=== PATIENT | female | born 1950 | race Caucasian/White ===

== ENCOUNTER 2022-08-13 12:22 | Emergency (ER) | payer MEDICARE, BC, SELFPAY ==
[2022-08-13 12:23] VITALS: BP 152/91; PULSE 82; RESP 22; TEMP 36.8; O2SAT 96; BMI 26.5
--- NOTE | 2022-08-13 12:27 | ECG_ITS ---
[facility] Test Date: 2022-08-13 Pat Name: Anat Chavez Department: Room: Gender: Female Solution Specialist: : 1950 Requested By: Tomi Gomez Order Number: [id number] Maty MD: Neil Rosado M.D. Measurements Intervals [place] Rate: 81 P: 36 DE: 207 QRS: -15 QRSD: 74 T: 37 QT: 360 QTc: 420 Interpretive Statements SINUS RHYTHM No previous ECG available for comparison Electronically Signed On 08-14-2022 14:09:11 RN DOCUMENTATION SPECIALIST by Neil Rosado M.D. [id number]
[2022-08-13 12:48] VITALS: BP 152/90; PULSE 74; RESP 14; O2SAT 98
--- NOTE | 2022-08-13 12:57 | ECG_ITS ---
[facility] Test Date: 2022-08-13 Pat Name: Anat Chavez Department: Room: Gender: Female Medical Records Coordinator: : 1950 Requested By: Tomi Gomez Order Number: [id number] Maty MD: Neil Rosado M.D. Measurements Intervals [place] Rate: 70 P: 72 HI: 209 QRS: -6 QRSD: 84 T: 45 QT: 401 QTc: 433 Interpretive Statements SINUS RHYTHM Compared to ECG 08/13/2022 12:30:40 No significant changes Electronically Signed On 08-14-2022 14:09:15 ITALIAN TEACHER by Neil Rosado M.D. [id number]
[2022-08-13 13:03] LABS: Basophils # 0.1 10^3/uL (0.0-0.1); Basophils % 0.8 %; Eosinophils # 0.2 10^3/uL (0.0-0.8); Hematocrit 40.4 % (37.0-47.0); Hemoglobin 13.4 g/dL (11.5-15.3); Lymphocytes # 2.2 10^3/uL (0.8-4.8); Lymphocytes % 36.6 %; Mean Corpuscular HGB Conc 33.2 g/dL (30.0-36.0); Mean Corpuscular Hemoglobin 29.9 pg (28.0-34.0); Mean Corpuscular Volume 90.2 fl (81-99); Mean Platelet Volume 9.4 fL (7.4-10.4); Monocytes # 0.6 10^3/uL (0.2-0.9); Monocytes % 9.3 %; Neutrophils % 50.1 %; Nucleated Red Blood Cells % 0 %; Platelet Count 249 10^3/cmm (130-400); Red Blood Count 4.48 10^6/uL (4.1-5.3)
[2022-08-13 13:23] LABS: Troponin(5th) Baseline 6 ng/L (0-10)
[2022-08-13 13:24] LABS: Alanine Aminotransferase 15 U/L (0-33); Albumin Level 4.1 g/dL (3.5-5.2); Alkaline Phosphatase 99 U/L (35-105); Anion Gap 14.5 (5-19); Aspartate Amino Transferase 17 U/L (0-32); Blood Urea Nitrogen 15 mg/dL (8-23); Calcium 9.4 mg/dL (8.5-10.5); Carbon Dioxide 25 mmol/L (22-29); Chloride 104 mmol/L (98-107); Creatinine Clr Calc Pharmacy 60.5904; Globulin 2.2 g/dL (1.3-4.6); Glomerular Filtration Rate 98.8 mL/min (90-130); Glucose 118 mg/dL (65-115); Osmolality Calculated 292 mOsm/kg (285-295); Potassium 3.5 mmol/L (3.5-5.1); Sodium 140 mmol/L (136-145); Total Bilirubin 0.4 mg/dL (0.15-1.2); Total Protein 6.3 g/dL (6.6-8.7)
[2022-08-13] MEDS: aspirin 81 mg Chew Tablet 324 MG PO (13:27)
--- NOTE | 2022-08-13 14:23 | W.ED.CHESTPA ---
HPI - Chest Pain General: Chief Complaint: Chest Pain Stated Complaint: chest discomfort Time Seen by Provider: 08/13/22 12:41 Source: patient Mode of arrival: ambulatory History of Present Illness: 71-year-old female presents to the emergency room complaining of chest pain she has had intermittently for the last week. She has history of mitral valve prolapse. She tells me that 3 to 4 years ago when she was seen a [facility] in [place] she had an angiogram that was negative. She is not currently having any chest pain at this time. When she does get chest pain it radiates into her left arm from the left side of her chest gets a tingling sensation. She denies any orthopnea no PND. No increased swelling in her legs. MD complaint: chest pain Timing of current episode: episodic Prior episodes: Yes Onset: during rest Pain location: substernal Pain radiation: left arm Severity: mild Quality: aching and heaviness Relieving factors: nothing Exacerbating factors: nothing Associated symptoms: Deny abdominal pain, dyspnea, fever(s), nausea or vomiting Treatment prior to arrival: none Review of Systems Const: Denies: fever(s), chills, body aches, change in appetite, fatigue or malaise ENMT: Denies: throat pain, ear or mastoid pain, nasal discharge or nasal congestion Card: Denies: chest pain, edema, dyspnea on exertion or orthopnea Resp: Denies: dyspnea, productive cough or non-productive cough GI: Denies: abdominal pain, nausea, vomiting, hematemesis, coffee ground emesis, diarrhea, constipation, bloating, hematochezia or melena : Denies: flank pain, difficulty voiding, dysuria, urinary frequency or urinary urgency Musc: Denies: neck pain or back pain Skin/Breast: Denies: rash or pruritus PFSH ED PFSH: Medical History (Updated 08/13/22 @ 15:31 by Tomi Paulino DO) Mitral valve prolapse Physical Exam Const: GENERAL APPEARANCE: cooperative and comfortable ORIENTATION/CONSCIOUSNESS: Yes awake, Yes oriented to person, Yes oriented to place and Yes oriented to time HENMT: COMMON NORMALS: normocephalic, atraumatic and hearing grossly normal bilaterally HEAD & SCALP: normocephalic and atraumatic Resp: COMMON NORMALS: normal respiratory effort, No retractions, No use of accessory muscles and clear to auscultation bilaterally AUSCULTATION: clear to auscultation bilaterally Cardio: COMMON NORMALS: regular rate, regular rhythm and No murmurs present (Cardio) RATE: regular rate RHYTHM: regular rhythm GI: COMMON NORMALS: Soft to palpation and No hepatosplenomegaly present AUSCULTATION: Yes normoactive bowel sounds PALPATION: Yes Soft to palpation, No Tenderness to palpation present (GI), No Guarding due to palpation present (GI) and Yes No hepatosplenomegaly present Extremity: COMMON NORMALS: normal to inspection, capillary refill normal, no clubbing, cyanosis or edema, no calf tenderness and no pedal edema Neuro: SENSORIUM/ORIENTATION: Yes oriented to person, Yes oriented to place and Yes oriented to time Skin: COMMON NORMALS: no rashes or lesions noted GENERAL SKIN EXAM: no rashes or lesions noted Course Vital Signs: Vital signs: Vital Signs Temperature 98.2 F 08/13/22 12:23 Pulse Rate 74 08/13/22 12:48 Respiratory Rate 14 08/13/22 12:48 Blood Pressure 152/90 08/13/22 12:48 Pulse Oximetry 98 08/13/22 12:48 Oxygen Delivery Me thod 08/13/22 12:48 MDM - Chest Pain Medical Decision Making Labs imaging and EKG reviewed. No acute ST changes on the EKG. Blood pressure is elevated we will start her on isosorbide mononitrate 30 mg daily also add omeprazole 20 mg daily. She has follow-up with cardiology of [facility]. Recommend that she keep that follow-up and they can review her previous stress testing to see if they recommend further stress testing. She has recurrent symptoms she should return to the emergency room. Patient declines offer to arrange for outpatient stress testing through our cardiology clinic since she is seen at another outside cardiology clinic. Medical Records I reviewed the patient's medical records. Lab Data I reviewed the patient's lab results. 08/13/22 12:45 08/13/22 12:45 Radiology Impressions Chest X-Ray 08/13/22 14:39 Impression: Atherosclerosis. Laboratory Results WBC 6.0 10^3/uL (4.0-10.0) 08/13/22 12:45 RBC 4.48 10^6/uL (4.1-5.3) 08/13/22 12:45 Hgb 13.4 g/dL (11.5-15.3) 08/13/22 12:45 Hct 40.4 % (37.0-47.0) 08/13/22 12:45 MCV 90.2 fl (81-99) 08/13/22 12:45 MCH 29.9 pg (28.0-34.0) 08/13/22 12:45 MCHC 33.2 g/dL (30.0-36.0) 08/13/22 12:45 RDW 12.0 % (12.1-15.1) L 08/13/22 12:45 Plt Count 249 10^3/cmm (130-400) 08/13/22 12:45 MPV 9.4 fL (7.4-10.4) 08/13/22 12:45 Neut % (Auto) 50.1 % 08/13/22 12:45 Lymph % (Auto) 36.6 % 08/13/22 12:45 Beckham % (Auto) 9.3 % 08/13/22 12:45 Eos % (Auto) 3.0 % 08/13/22 12:45 Baso % (Auto) 0.8 % 08/13/22 12:45 Neut # (Auto) 3.00 10^3/uL (1.8-7.7) 08/13/22 12:45 Lymph # (Auto) 2.2 10^3/uL (0.8-4.8) 08/13/22 12:45 Beckham # (Auto) 0.6 10^3/uL (0.2-0.9) 08/13/22 12:45 Eos # (Auto) 0.2 10^3/uL (0.0-0.8) 08/13/22 12:45 Baso # (Auto) 0.1 10^3/uL (0.0-0.1) 08/13/22 12:45 Nucleated RBC % (auto) 0 % 08/13/22 12:45 Nucleated RBCs # 0.0 /100WBC 08/13/22 12:45 Sodium 140 mmol/L (136-145) 08/13/22 12:45 Potassium 3.5 mmol/L (3.5-5.1) 08/13/22 12:45 Chloride 104 mmol/L (98-107) 08/13/22 12:45 Carbon Dioxide 25 mmol/L (22-29) 08/13/22 12:45 Anion Gap 14.5 (5-19) 08/13/22 12:45 BUN 15 mg/dL (8-23) 08/13/22 12:45 Creatinine 0.6 mg/dL (0.5-0.9) 08/13/22 12:45 GFR Calculation 98.8 mL/min (90-130) 08/13/22 12:45 Glucose 118 mg/dL (65-115) H 08/13/22 12:45 Calculated Osmolality 292 mOsm/kg (285-295) 08/13/22 12:45 Calcium 9.4 mg/dL (8.5-10.5) 08/13/22 12:45 Total Bilirubin 0.4 mg/dL (0.15-1.2) 08/13/22 12:45 AST 17 U/L (0-32) 08/13/22 12:45 ALT 15 U/L (0-33) 08/13/22 12:45 Alkaline Phosphatase 99 U/L (35-105) 08/13/22 12:45 Troponin T Baseline 6 ng/L (0-10) 08/13/22 12:45 Troponin T 120 Minute 6.00 ng/L (0-10) 08/13/22 14:40 Delta Troponin T 0 ABS# (0-10) 08/13/22 14:40 Total Protein 6.3 g/dL (6.6-8.7) L 08/13/22 12:45 Albumin 4.1 g/dL (3.5-5.2) 08/13/22 12:45 Globulin 2.2 g/dL (1.3-4.6) 08/13/22 12:45 Discharge Plan Discharge Patient Disposition: Home Clinical Impression: Atypical chest pain Condition: Stable Prescriptions: New isosorbide mononitrate 30 mg tablet extended release 24 hr 30 mg PO DAILY Qty: 30 0RF omeprazole 20 mg capsule,delayed release(DR/EC) 20 mg PO DAILY 28 Days Qty: 30 0RF No Action Benadryl 25 mg Capsule 25 mg PO BEDTIME Discharge Orders: Discharge ED (Routine); Ordered 08/13/22 Ordered By: Tomi Paulino Discharge Diet: Usual diet Discharge Activity: Limit activity as instructed Patient Instructions: Opioid Safety, Pain Management Activity Restrictions/Additional Instructions: You were seen today for chest pain. Your cardiac enzymes and EKG were unremarkable. Your blood pressure is moderately elevated. Recommend that you start on isosorbide mononitrate 30 mg daily. Continue other previously prescribed medications in addition to this recommend that you start omeprazole 20 mg daily. Follow-up with your [facility] to discuss your ER visit and reevaluate your blood pressure within the next 1 to 2 weeks. If you have worsening symptoms or change symptoms return to the emergency room. Coding Level of Care Code ED [employer] for Nancy Wick
--- NOTE | 2022-08-13 14:39 | XR_ITS ---
WS: [id number] Portable AP upright chest, 08/13/2022 Clinical Data: dyspnea/cough Comparison: None. Findings: No nodules, masses or effusions are seen. The heart is normal. The pulmonary vascularity is not increased. No pneumonia or pneumothorax is seen. The aortic arch and descending thoracic aorta s how calcification and tortuosity. There are monitor leads on the chest wall. XR/XR chest 1V portable [id number] Impression: Atherosclerosis.
--- NOTE | 2022-08-13 14:57 | ECG_ITS ---
[facility] Test Date: 2022-08-13 Pat Name: Anat Chavez Department: Room: Gender: Female Liquor Blender: : 1950 Requested By: Tomi Gomez Order Number: [id number] Maty MD: Neil Rosado M.D. Measurements Intervals [place] Rate: 66 P: 80 [place]: 211 QRS: 18 QRSD: 77 T: 44 QT: 419 QTc: 440 Interpretive Statements SINUS RHYTHM WITH FIRST DEGREE AV BLOCK Compared to ECG 08/13/2022 13:07:03 First degree AV block now present Electronically Signed On 08-14-2022 16:18:37 CANDY CUTTER HAND by Neil Rosado M.D. [id number]
[2022-08-13 15:46] LABS: Troponin 5 2HR Delta 0 ABS# (0-10)
== END 2022-08-13 15:45 | disposition home or self-care (01) ==
PROVIDERS: Emergency Provider Family Medicine
DX: R07.89 Other chest pain (principal)
CPT/HCPCS: 71045; 80053; 84484; 85025; 93005; 99285